=== PATIENT | male | born 1985 | race Caucasian/White ===

== ENCOUNTER → 2021-09-01 13:08 | Outpatient (BNVA) | payer SELFPAY | PROVIDERS: Referring Provider Registered Nurse; Visit Provider Specialist | DX: S92.531A Displaced fracture of distal phalanx of right lesser toe(s), initial encounter for closed fracture (principal); X58.XXXA Exposure to other specified factors, initial encounter | CPT/HCPCS: 73660 ==

== ENCOUNTER → 2021-09-22 14:24 | Outpatient (BNVA) | payer SELFPAY | PROVIDERS: Visit Provider Specialist | DX: S92.531A Displaced fracture of distal phalanx of right lesser toe(s), initial encounter for closed fracture (principal); X58.XXXA Exposure to other specified factors, initial encounter | CPT/HCPCS: 73660 ==